=== PATIENT | female | born 1955 | race Caucasian/White ===

== ENCOUNTER 2019-04-09 08:08 | Emergency (ER) | payer BC ==
[~2019-04-09] VITALS: Ht 167.6 cm; Wt 90.9 kg
[~2019-04-09 08:08] MED LIST: ATOR10TA65 PO; CHOL200073 PO; LIDO113G3 TP; LOSA1TAB25 PO; METO-407 PO
[2019-04-09 08:11] VITALS: Ht 167.6 cm; Wt 90.9 kg
[2019-04-09] MEDS ORDERED: SOD CHLORIDE 0.9% 100 ML ONE (09:43)
[2019-04-09] MEDS ORDERED: IOHEXOL 300MG/ML 150 ML BTL ONE (09:43)
[2019-04-09 12:16] VITALS: BP 142/81; PULSE 63; RESP 18
== END 2019-04-09 12:18 | disposition home or self-care (01) ==
LOC: E/R 08:08
DX: B02.29 Other postherpetic nervous system involvement (principal); I10 Essential (primary) hypertension
CPT/HCPCS: 36415; 74177; 80053; 81003; 83690; 85025; Q9967; Z7502; Z7610